=== PATIENT | female | born 1955 | race Caucasian/White ===

== ENCOUNTER 2021-04-24 13:52 | Inpatient (IN) | payer OTHER ==
[~2021-04-24] VITALS: Ht 162.6 cm; Wt 63.5 kg
[2021-04-24 14:36] LABS: BASOPHILS ABSOLUTE AUTO 0.04 K/mm3 (0.00-0.23); BASOPHILS PERCENT AUTO 1 % (0-2); EOSINOPHILS ABSOLUTE AUTO 0.01 K/mm3 (0.00-0.68); EOSINOPHILS PERCENT AUTO 0 % (0-6); Hematocrit 40.2 % (33.0-51.0); Hemoglobin 13.6 g/dL (11.5-16.0); IMMATURE GRAN ABSOLUTE AUTO 0.02 K/mm3 (0.00-0.10); IMMATURE GRAN PERCENT AUTO 0 % (0-1); LYMPHOCYTES ABSOLUTE AUTO 0.97 K/mm3 (0.84-5.20); LYMPHOCYTES PERCENT AUTO 11 % (21-46); MONOCYTES ABSOLUTE AUTO 0.76 K/mm3 (0.16-1.47); MONOCYTES PERCENT AUTO 9 % (4-13); Mean Corpuscular HGB 30.3 pg (26.0-34.0); Mean Corpuscular HGB Conc 33.8 g/dL (31.5-36.5); Mean Corpuscular Volume 90 fL (80-100); Mean Platelet Volume 9.4 fL (9.1-12.4); NEUTROPHILS ABSOLUTE AUTO 6.85 K/mm3 (1.96-9.15); NEUTROPHILS PERCENT AUTO 79 % (41-73); Platelet Count 268 K/mm3 (150-400); RDW Coefficient Variation 13.2 % (11.7-14.2); RDW Standard Deviation 43.9 fL (35.1-46.3); Red Blood Cell Count 4.49 M/mm3 (3.80-5.20); White Blood Cell Count 8.65 K/mm3 (4.00-11.30)
[2021-04-24 14:50] LABS: Alanine Aminotransfer (ALT/SGP 54 U/L (12-78); Albumin, Blood 4.2 g/dL (3.4-5.0); Albumin/Globulin Ratio 1.3 (0.8-1.8); Alk Phos 99 U/L (50-136); Anion Gap 9 mmol/L (6-16); Aspartate Aminotrans (AST/SGOT 38 U/L (12-37); Bilirubin, Total 0.5 mg/dL (0.1-1.0); Blood Urea Nitrogen 13 mg/dL (8-24); CO2, Blood 24 mmol/L (21-32); Calcium, Blood 8.8 mg/dL (8.5-10.1); Chloride, Blood 105 mmol/L (98-108); Creatinine, Blood 0.72 mg/dL (0.40-1.00); Globulin, Blood 3.3 g/dL (2.2-4.0); Glomerular Filtration Rate >60 (60-); Glucose, Blood 114 mg/dL (70-99); Sodium, Blood 138 mmol/L (136-145); Total Protein, Blood 7.5 g/dL (6.4-8.2); Troponin I <0.015 ng/mL (0.000-0.040)
[2021-04-24] MEDS ORDERED: ONDA8 PO (17:48)
[2021-04-24] MEDS ORDERED: OMEP20ER PO (17:48)
[2021-04-24] MEDS ORDERED: VENL75ER PO (17:49)
[2021-04-24] MEDS ORDERED: LORA10ER PO (18:06)
[2021-04-24 18:41] LABS: Source, Urine Clean Catch
[2021-04-24 19:00] LABS: Appearance, Urine Clear (Clear); Bilirubin, Urine Neg (Neg); Blood, Urine 3+ (Neg); Color, Urine Amber (P-Yellow); Glucose Qualitative, Urine Neg (Neg); Ketones, Urine 1+ (Neg); Leukocyte Esterase, Urine 1+ (Neg); Nitrite, Urine Neg (Neg); Protein, Urine 3+ (Neg); Specific Gravity, Urine 1.025 (1.003-1.022); Urobilinogen, Urine NORM (Normal)
[2021-04-24 19:54] LABS: Bacteria Mod /hpf; Squamous Epithelial Cells Few /hpf (Few)
[2021-04-25 05:01] LABS: BASOPHILS ABSOLUTE AUTO 0.06 K/mm3 (0.00-0.23); BASOPHILS PERCENT AUTO 1 % (0-2); EOSINOPHILS ABSOLUTE AUTO 0.11 K/mm3 (0.00-0.68); EOSINOPHILS PERCENT AUTO 2 % (0-6); Hematocrit 36.7 % (33.0-51.0); Hemoglobin 12.2 g/dL (11.5-16.0); IMMATURE GRAN ABSOLUTE AUTO 0.02 K/mm3 (0.00-0.10); IMMATURE GRAN PERCENT AUTO 0 % (0-1); LYMPHOCYTES ABSOLUTE AUTO 1.55 K/mm3 (0.84-5.20); LYMPHOCYTES PERCENT AUTO 21 % (21-46); MONOCYTES ABSOLUTE AUTO 0.83 K/mm3 (0.16-1.47); MONOCYTES PERCENT AUTO 11 % (4-13); Mean Corpuscular HGB 30.3 pg (26.0-34.0); Mean Corpuscular HGB Conc 33.2 g/dL (31.5-36.5); Mean Corpuscular Volume 91 fL (80-100); Mean Platelet Volume 9.4 fL (9.1-12.4); NEUTROPHILS ABSOLUTE AUTO 4.97 K/mm3 (1.96-9.15); NEUTROPHILS PERCENT AUTO 66 % (41-73); Platelet Count 215 K/mm3 (150-400); RDW Coefficient Variation 13.5 % (11.7-14.2); RDW Standard Deviation 45.4 fL (35.1-46.3); Red Blood Cell Count 4.03 M/mm3 (3.80-5.20); White Blood Cell Count 7.54 K/mm3 (4.00-11.30)
[2021-04-25 05:28] LABS: Anion Gap 6 mmol/L (6-16); Blood Urea Nitrogen 13 mg/dL (8-24); Bun/Creatinine Ratio 17.4 (12.0-20.0); CO2, Blood 26 mmol/L (21-32); Calcium, Blood 8.4 mg/dL (8.5-10.1); Chloride, Blood 107 mmol/L (98-108); Creatinine, Blood 0.75 mg/dL (0.40-1.00); Glomerular Filtration Rate >60 (60-); Glucose, Blood 119 mg/dL (70-99); Potassium, Blood 3.6 mmol/L (3.5-5.5); Sodium, Blood 139 mmol/L (136-145)
--- NOTE | 2021-04-25 07:50 | NUR ---
SHIFT SUMMARY: PT HAS BEEN STABLE SINCE ADMIT. DENIES CP, HOWEVER REPORTS A FLUTTERING SENSATON IN CHEST. TELE IN PLACE. PT A/FIB IN 80'S. CONTINUES TO REPORT DIZZINESS WITH ACTIVITY. DENIES AT REST. DENIES N/V. PLAN FOR ECHO TODAY.
--- NOTE | 2021-04-25 17:07 | NUR ---
SHIFT SUMMARY PT A&OX4, TELE @90-100, IV METOPROLOL GIVEN X1, PT REP DIZZY AND LIGHTHEADED WHEN UP TO BRP/SIDE OF BEAD, PT REP "FLUTTER" FEELING IN CHEST, DENIES CP/PRESSURE. DINO PO. VOIDING WELL. AMB SBA FOR SAFETY. WILL REPORT TO ONCOMING NOC NATE.
[2021-04-26 04:50] LABS: Hematocrit 38.1 % (33.0-51.0); Hemoglobin 12.9 g/dL (11.5-16.0); Mean Corpuscular HGB 30.6 pg (26.0-34.0); Mean Corpuscular HGB Conc 33.9 g/dL (31.5-36.5); Mean Corpuscular Volume 90 fL (80-100); Mean Platelet Volume 9.4 fL (9.1-12.4); Platelet Count 204 K/mm3 (150-400); RDW Coefficient Variation 13.3 % (11.7-14.2); RDW Standard Deviation 44.6 fL (35.1-46.3); Red Blood Cell Count 4.22 M/mm3 (3.80-5.20); White Blood Cell Count 6.13 K/mm3 (4.00-11.30)
[2021-04-26 05:13] LABS: Alanine Aminotransfer (ALT/SGP 34 U/L (12-78); Albumin, Blood 3.2 g/dL (3.4-5.0); Alk Phos 80 U/L (50-136); Anion Gap 5 mmol/L (6-16); Aspartate Aminotrans (AST/SGOT 23 U/L (12-37); Bilirubin, Total 0.5 mg/dL (0.1-1.0); Blood Urea Nitrogen 13 mg/dL (8-24); Bun/Creatinine Ratio 16.9 (12.0-20.0); CHOL/HDL RATIO 3.6; CO2, Blood 30 mmol/L (21-32); Calcium, Blood 8.5 mg/dL (8.5-10.1); Chloride, Blood 106 mmol/L (98-108); Cholesterol 284 mg/dL (50-200); Creatinine, Blood 0.77 mg/dL (0.40-1.00); Globulin, Blood 3.2 g/dL (2.2-4.0); Glomerular Filtration Rate >60 (60-); Glucose, Blood 103 mg/dL (70-99); HDL Cholesterol 80 mg/dL (>39); LDL/HDL RATIO 2.3; Low Density Lipoprotein Chol 183 mg/dL (0-110); Potassium, Blood 3.7 mmol/L (3.5-5.5); Sodium, Blood 141 mmol/L (136-145); Total Protein, Blood 6.4 g/dL (6.4-8.2); Triglycerides 107 mg/dL (30-160); Very Low Density Lipoprot Chol 21 mg/dL (6-32)
--- NOTE | 2021-04-26 06:35 | NUR ---
AAOX4. PATIENT HR AFIB CONTROLLED 90'S GOES UP TO 140'S UPON AMBULATING TO THE BATH ROOM. SLEPT WELL. NO ACUTE DISTRESS NOTED AT THIS TIME.
--- NOTE | 2021-04-26 18:24 | NUR ---
SHIFT SUMMARY PT A/O X4 AND SBA IN ROOM. C/O DIZZINESS AND TREATED PER EMR FOR VERTIGO. NO C/O CP BUT EXPERIENCING MINOR PALPITATIONS. TREATED PER EMR X1 FOR TACHYCARDIA. PT REMAINS IN AFIB. VS CURRENTLY STABLE. WILL REPORT TO JAIMIE SULLIVAN.
[2021-04-27 04:24] LABS: Hematocrit 41.5 % (33.0-51.0); Hemoglobin 13.9 g/dL (11.5-16.0); Mean Corpuscular HGB 30.2 pg (26.0-34.0); Mean Corpuscular HGB Conc 33.5 g/dL (31.5-36.5); Mean Corpuscular Volume 90 fL (80-100); Mean Platelet Volume 9.4 fL (9.1-12.4); Platelet Count 225 K/mm3 (150-400); RDW Coefficient Variation 13.2 % (11.7-14.2); RDW Standard Deviation 43.2 fL (35.1-46.3); Red Blood Cell Count 4.61 M/mm3 (3.80-5.20); White Blood Cell Count 7.31 K/mm3 (4.00-11.30)
[2021-04-27 06:21] LABS: Alanine Aminotransfer (ALT/SGP 30 U/L (12-78); Albumin, Blood 3.4 g/dL (3.4-5.0); Albumin/Globulin Ratio 1.2 (0.8-1.8); Alk Phos 89 U/L (50-136); Anion Gap 8 mmol/L (6-16); Aspartate Aminotrans (AST/SGOT 17 U/L (12-37); Bilirubin, Total 0.5 mg/dL (0.1-1.0); Blood Urea Nitrogen 16 mg/dL (8-24); Bun/Creatinine Ratio 21.7 (12.0-20.0); CO2, Blood 28 mmol/L (21-32); Calcium, Blood 8.8 mg/dL (8.5-10.1); Chloride, Blood 105 mmol/L (98-108); Creatinine, Blood 0.74 mg/dL (0.40-1.00); Globulin, Blood 2.9 g/dL (2.2-4.0); Glomerular Filtration Rate >60 (60-); Glucose, Blood 104 mg/dL (70-99); Potassium, Blood 3.9 mmol/L (3.5-5.5); Sodium, Blood 141 mmol/L (136-145); Total Protein, Blood 6.3 g/dL (6.4-8.2)
--- NOTE | 2021-04-27 07:22 | NUR ---
AAOX4. AROUND 1999 PATIENT HAD HR CONVERTED FROM A-FIB TO A-FLUTTER. WAS NOTIFIED AND ORDERED XARELTO AT 2100. LAST HR CHECKED AND WAS AFIB 109 AT 0725 IN AM. NO ACUTE DISTRESS NOTED AT THIS TIME. PATIENT IS SLEEPING.
--- NOTE | 2021-04-27 17:42 | NUR ---
SHIFT SUMMARY PT HAS REPORTED IMPROVEMENT THIS SHIFT. SHE STILL IS EXPERIENCING PALPITATIONS AND IS IN AFIB/AFLUTTER BUT HER VERTIGO IS IMPROVING. ONE INSTANCE OF NAUSEA THIS SHIFT BUT IT HAS RESPONDED WELL WITH MEDICATION. CAPRICE. WILL REPORT TO JAIMIE SULLIVAN.
--- NOTE | 2021-04-27 21:36 | NUR ---
AT 2120 PAT HAD A RUN OF V-TACH 18 BEAT/MIN. PATIENT IS DOING FINE AT THIS TIME. MD WAS CALLED AND STILL WAITING FOR CALL BACK
--- NOTE | 2021-04-27 22:04 | NUR ---
MD CALLED BACK IN REGARD TO V-TACH PT SARAH PIERSON, WILL KEEP MONITOR THE PATIENT AND THE MORNING LABS MG AND K
[2021-04-28 04:04] LABS: Hematocrit 43.3 % (33.0-51.0); Hemoglobin 14.6 g/dL (11.5-16.0); Mean Corpuscular HGB 30.2 pg (26.0-34.0); Mean Corpuscular HGB Conc 33.7 g/dL (31.5-36.5); Mean Corpuscular Volume 90 fL (80-100); Mean Platelet Volume 9.4 fL (9.1-12.4); Platelet Count 226 K/mm3 (150-400); RDW Coefficient Variation 12.8 % (11.7-14.2); RDW Standard Deviation 42.2 fL (35.1-46.3); Red Blood Cell Count 4.83 M/mm3 (3.80-5.20); White Blood Cell Count 6.97 K/mm3 (4.00-11.30)
[2021-04-28 04:34] LABS: Anion Gap 6 mmol/L (6-16); Blood Urea Nitrogen 15 mg/dL (8-24); Bun/Creatinine Ratio 20.6 (12.0-20.0); CO2, Blood 27 mmol/L (21-32); Calcium, Blood 8.7 mg/dL (8.5-10.1); Chloride, Blood 106 mmol/L (98-108); Creatinine, Blood 0.73 mg/dL (0.40-1.00); Glomerular Filtration Rate >60 (60-); Glucose, Blood 104 mg/dL (70-99); Sodium, Blood 139 mmol/L (136-145)
[2021-04-28 14:01] LABS: SARS-Cov-2 (COVID-19) PCR, MMC NEGATIVE (NEGATIVE)
--- NOTE | 2021-04-28 15:01 | NUR ---
PT TO ICU ROOM 7 VIA WHEELCHAIR WITH DASH MOFFETT AT THIS TIME FOR ALTON PROCEDURE
--- NOTE | 2021-04-28 15:58 | NUR ---
ECHOCARDIOGRAM COMPLETE
--- NOTE | 2021-04-28 16:10 | NUR ---
TIME OUT PERFORMED BY NATE DOZIER CHARGE. ETCO2 WAS ON DURING PROCEDURE. MD STARTED WITH ALTON, NO CLOTS FOUND. PROCEDED TO CARDIOVERSION ONCE PATIENT WAS LAYED FLAT ON BACK FROM BEING ON LEFT SIDE. AT 1544 200 JOULES BIPHASIC SHOCK GIVEN. PATIENT WENT BACK IN TO NORMAL SINUS RYTHM. SEE ANESTHESIA NOTES FOR MEDICATIONS GIVEN AND DOSES. BY 1600 PATIENT WAS AWAKE, ALERT AND ORIENTED. VSS. 12 LEAD EKG DONE AT BEDSIDE POST CARDIOVERSION. LAST SET OF VSS. 97% ON RA, HR 69, BP 135/81 MAP 98. REPORT GIVEN TO NATE PAUL.
--- NOTE | 2021-04-28 16:44 | NUR ---
REPORT RECEIVED FROM PHAN DIGITAL COMPUTER OPERATOR, PT BACK TO UNIT AT ABOUT 1640. PT IS A/O, DENIES CP. [employer] [place] [facility]ALIA REPORTS NSR AT 69. WILL CTM
--- NOTE | 2021-04-28 18:29 | NUR ---
SUMMARY: NO ACUTE CHANGE SINCE CARDIOVERSION. PT A/O, VSS, DENIES CP, TELE CONTINUES NSR. PT HAS NEW POWERGLIDE TO L UPPER ARM. PT IS AMBULATORY WITH SBA, TOLERATED DINNER TONIGHT. PLAN IS FOR STRESS TEST TOMORROW, WILL MAKE NOC RN AWARE. PT USING CALL LIGHT, NO SAFETY CONCERNS.
[2021-04-29 07:40] LABS: BASOPHILS ABSOLUTE AUTO 0.05 K/mm3 (0.00-0.23); BASOPHILS PERCENT AUTO 1 % (0-2); EOSINOPHILS ABSOLUTE AUTO 0.23 K/mm3 (0.00-0.68); EOSINOPHILS PERCENT AUTO 4 % (0-6); Hematocrit 38.7 % (33.0-51.0); Hemoglobin 13.3 g/dL (11.5-16.0); IMMATURE GRAN ABSOLUTE AUTO 0.01 K/mm3 (0.00-0.10); IMMATURE GRAN PERCENT AUTO 0 % (0-1); LYMPHOCYTES ABSOLUTE AUTO 1.21 K/mm3 (0.84-5.20); LYMPHOCYTES PERCENT AUTO 20 % (21-46); MONOCYTES ABSOLUTE AUTO 0.69 K/mm3 (0.16-1.47); MONOCYTES PERCENT AUTO 11 % (4-13); Mean Corpuscular HGB 31.3 pg (26.0-34.0); Mean Corpuscular HGB Conc 34.4 g/dL (31.5-36.5); Mean Corpuscular Volume 91 fL (80-100); Mean Platelet Volume 9.6 fL (9.1-12.4); NEUTROPHILS PERCENT AUTO 65 % (41-73); Platelet Count 237 K/mm3 (150-400); RDW Coefficient Variation 12.9 % (11.7-14.2); RDW Standard Deviation 42.6 fL (35.1-46.3); Red Blood Cell Count 4.25 M/mm3 (3.80-5.20); White Blood Cell Count 6.19 K/mm3 (4.00-11.30)
[2021-04-29 07:57] LABS: Anion Gap 4 mmol/L (6-16); Blood Urea Nitrogen 12 mg/dL (8-24); Bun/Creatinine Ratio 17.5 (12.0-20.0); CO2, Blood 30 mmol/L (21-32); Calcium, Blood 8.5 mg/dL (8.5-10.1); Chloride, Blood 108 mmol/L (98-108); Creatinine, Blood 0.68 mg/dL (0.40-1.00); Glomerular Filtration Rate >60 (60-); Glucose, Blood 100 mg/dL (70-99); Sodium, Blood 142 mmol/L (136-145)
[2021-04-29] MEDS ORDERED: ATOR20 PO (18:05)
[2021-04-29] MEDS ORDERED: METO50ER PO (18:05)
[2021-04-29] MEDS ORDERED: XARELTO20 MG PO (18:06)
--- NOTE | 2021-04-29 18:12 | NUR ---
SHIFT SUMMARY PT HAD STRESS TEST COMPLETE. BUT IS UNABLE TO ARRANGE A RIDE DUE TO WEATHER/DARK SO DC WAS POST PONED UNTIL TOMORROW; MD AWARE. PT HAS NO COMPLAINTS T/O DAY. MOVING AROUND WELL w/ SBA. DIZZINESS IMPROVED w/ EXERCISES BY THERAPY. ECXITED FOR DC TOMORROW.
--- NOTE | 2021-04-30 04:32 | NUR ---
SHIFT SUMMARY PT A&O X4 & IN PLEASENT MOOD T/O SHIFT. TOLERATING PO INTAKE WELL. PT DENIES SOB, CHEST PAIN, OR N/V @ THIS TIME. VSS. CALL LIGHT IS W/IN REACH. PT RESTED IN BED COMFORTABLY FOR MOST OF SHIFT. PT STEADY GAIT W/ AMBULATION, DENIES DIZZINESS.
[2021-04-30] MEDS ORDERED: LISI5 PO (09:21)
--- NOTE | 2021-04-30 10:25 | NUR ---
DISCHARGE PT DOING GREAT. NSR SINCE CARDIOVERSION. DR WOOD & DR MEZA IN TO SEE PT THIS AM. MED[facility] CALLED TO [facility]. ESCORTED OUT VIA W/C.
== END 2021-04-30 10:22 | disposition home or self-care (01) | DRG 308 ==
LOC: ER 13:52 → SURS 13:53 → ER 13:53 → ERHOLD 13:53 → SURS 13:53 → ER 21:14 → SURS 04-25 01:52 → ICUE 04-28 15:02 → SURS 04-28 16:37
PROVIDERS: Anesthesiology; Internal Medicine; Internal Medicine Cardiovascular Disease; Physician Assistant; ADMIT Internal Medicine
PROC: 5A2204Z Restoration of Cardiac Rhythm, Single (ICD-10-PCS; principal; 2021-04-28)
DX: I48.91 Unspecified atrial fibrillation (principal); I50.21 Acute systolic (congestive) heart failure; I50.32 Chronic diastolic (congestive) heart failure; F32.A Depression, unspecified; E87.6 Hypokalemia; Z20.822 Contact with and (suspected) exposure to COVID-19; E78.5 Hyperlipidemia, unspecified; I11.0 Hypertensive heart disease with heart failure; K21.9 Gastro-esophageal reflux disease without esophagitis; C76.0 Malignant neoplasm of head, face and neck; I70.0 Atherosclerosis of aorta; H81.10 Benign paroxysmal vertigo, unspecified ear; I25.10 Atherosclerotic heart disease of native coronary artery without angina pectoris; F10.10 Alcohol abuse, uncomplicated; I48.92 Unspecified atrial flutter; I47.2 Ventricular tachycardia; Z87.891 Personal history of nicotine dependence; Z88.1 Allergy status to other antibiotic agents; Z79.899 Other long term (current) drug therapy; Z88.6 Allergy status to analgesic agent; Z92.21 Personal history of antineoplastic chemotherapy; Z90.710 Acquired absence of both cervix and uterus; Z98.890 Other specified postprocedural states; Z28.89 Immunization not carried out for other reason
CPT/HCPCS: 36415; 71045; 71260; 78452; 80048; 80053; 80061; 81001; 83735; 83880; 84443; 84484; 85025; 85027; 87086; 92960; 93005; 93010; 93017; 93306; 93312; 93325; 94760; 96361; 96374; 96375; 96376; 97112; 97116; 97162; 99285-25; A9270; A9500; C1751; G0378; J0280; J2250; J2370; J2405; J2704; J2785; J3010; J7030; Q9967; U0004

== ENCOUNTER 2021-06-26 10:32 | Day surgery (SDC) | payer OTHER ==
[~2021-06-26] VITALS: Ht 162.6 cm; Wt 60.0 kg
[~2021-06-26 10:32] MED LIST: AMIODARONE HCL400 M2 PO; ATOR20 PO; LISI5 PO; LORA10ER PO; LOSA25 PO; METO50ER PO; OMEP20ER PO; ONDA8 PO; VENL75ER PO; XARELTO20 MG PO
[2021-06-26] MEDS ORDERED: ALPR.5 PO ×2 (11:09→11:10)
[2021-06-26] MEDS ORDERED: BANOPHEN25 MG PO (11:17)
[2021-06-26] MEDS ORDERED: MELATONIN5 M1 PO (11:18)
[2021-06-26] MEDS ORDERED: ACET500 PO (11:18)
[2021-06-26] MEDS ORDERED: KEYTRUDA100 MG/41 IV (11:20)
--- NOTE | 2021-06-26 12:35 | NUR ---
PT AWAKE POST PROCEDURE, CONVERSING APPROPRIATELY; DENIES CHEST PAIN. PT IN SR 60'S, OTHER VSS; POST PROCEDURE EKG PERFORMED.
[2021-06-26] MEDS ORDERED: Amiodarone HCl200 MG PO (12:39)
--- NOTE | 2021-06-26 12:55 | NUR ---
PT DRESSED SELF WITHOUT ISSUE, IV REMOVED-CANNULA INTACT.
--- NOTE | 2021-06-26 13:00 | NUR ---
PT AND SO RECEIVED DISCHARGE INSTRUCTIONS, MED LIST AND AFTER CARE INSTRUCTIONS; VERBALIZED GOOD UNDERSTANDING. PT LEF FACILITY VIA W/C, CONDITION STABLE.
== END 2021-06-26 22:37 | disposition home or self-care (01) ==
LOC: MHTC 10:32
DX: I48.91 Unspecified atrial fibrillation (principal); Z79.01 Long term (current) use of anticoagulants
CPT/HCPCS: 92960; 93005; 93010; J2704; J7030

== ENCOUNTER 2021-07-10 09:33 | Day surgery (SDC) | payer OTHER ==
[~2021-07-10] VITALS: Ht 162.6 cm; Wt 62.0 kg
[~2021-07-10 09:33] MED LIST changes: +ACET500 PO; +ALPR.5 PO; +Amiodarone HCl200 MG PO; +BANOPHEN25 MG PO; +KEYTRUDA100 MG/41 IV; +MELATONIN5 M1 PO
--- NOTE | 2021-07-10 10:56 | NUR ---
0940 PATIENT WAS BROUGHT BACK TOT PROCEDURE ROOM ADN PREPARED FOR A DCCV. DR. DAVISON CAME TOT ROOMA DN SPOKE WITH THE PATIENT AT LENGTH REGARDING THE PROCEDURE. PATIENT PLACED ON THE MONITOR. PIV OBTAINED. CONSENT, NURSING HISTORY. MEDICATION RECONCILIATION, AND ANESTHESIA INTERVIEW ALL PERFORMED AT THE BEDSIDE.
--- NOTE | 2021-07-10 10:59 | NUR ---
1036 PROCRDURE BEGUN, TIME OUT PREFORMED AND ONE [address] BY [address]. DAVISON. PATIENT RECOVERED BY RN AT THE BEDSIDE. REMAINS IN SINUS RHYTHM.
== END 2021-07-10 23:06 | disposition home or self-care (01) ==
LOC: MHTC 09:33
DX: I48.0 Paroxysmal atrial fibrillation (principal); I11.0 Hypertensive heart disease with heart failure; I50.22 Chronic systolic (congestive) heart failure; E78.5 Hyperlipidemia, unspecified; K21.9 Gastro-esophageal reflux disease without esophagitis
CPT/HCPCS: 92960; 93005; 93010; J2704; J7030

== ENCOUNTER → 2021-07-17 | Outpatient (CLI) | payer OTHER | END | disposition home or self-care (01) | LOC: LAB SHORT 14:51 | DX: L30.9 Dermatitis, unspecified (principal) | CPT/HCPCS: 88305; 88313 ==

== ENCOUNTER → 2021-07-31 | Outpatient (CLI) | payer OTHER | END | disposition home or self-care (01) | LOC: LAB SHORT 11:00 → LAB 11:00 | DX: L08.0 Pyoderma (principal) | CPT/HCPCS: 87070; 87077; 87186 ==

== ENCOUNTER 2024-08-17 00:43 | Day surgery (SDC) | payer OTHER ==
[2024-08-17] MEDS ORDERED: NS 250 ML IV SCH (06:50)
[2024-08-17 14:18] VITALS: BP 149/63
[2024-08-17 14:42] VITALS: BP 140/57
[2024-08-17 15:45] VITALS: BP 166/68
[2024-08-17] MEDS ORDERED: Acetaminophen 325 MG TABLET PO PRN (15:45)
[2024-08-17 16:07] VITALS: BP 154/70
[2024-08-17 17:32] VITALS: BP 131/53
[2024-08-17 17:55] VITALS: BP 122/56
== END 2024-08-17 18:07 | disposition home or self-care (01) ==
LOC: ATC 00:43
DX: C50.919 Malignant neoplasm of unspecified site of unspecified female breast (principal); Z17.1 Estrogen receptor negative status [ER-]; I48.91 Unspecified atrial fibrillation; Z87.891 Personal history of nicotine dependence; Z88.8 Allergy status to other drugs, medicaments and biological substances; Z79.899 Other long term (current) drug therapy
CPT/HCPCS: 36415; 36430; 86850; 86900; 86901; 86920; A9270; J7050; P9016

== ENCOUNTER → 2024-10-06 | Outpatient (CLI) | payer OTHER ==
[2024-10-06 14:05] LABS: Stool Occult Bld Immuno 1 Positive (NEGATIVE); Stool Occult Bld Immuno 2 Positive (NEGATIVE)
== END ==
LOC: LAB 11:19 → LAB SHORT 11:19
PROVIDERS: Nurse Practitioner
DX: C50.919 Malignant neoplasm of unspecified site of unspecified female breast (principal); D64.9 Anemia, unspecified
CPT/HCPCS: 82274

== ENCOUNTER 2024-10-20 01:08 | Day surgery (SDC) | payer MEDICARE ==
[2024-10-20] MEDS ORDERED: NS 250 ML IV SCH (06:55)
[2024-10-20 07:46] VITALS: BP 140/58
[2024-10-20 08:17] VITALS: BP 98/55
[2024-10-20 09:22] VITALS: BP 106/54
[2024-10-20] MEDS ORDERED: Acetaminophen 500 MG Tab PO SCH (09:45)
--- NOTE | 2024-10-20 09:50 | NUR ---
PT C/O HEADACHE 08/22, REQUESTED TYLELNOL. CALLED DR DEWITT'S OFFICE AND REC'D A NEW ORDER FOR TYLENOL.
[2024-10-20 09:53] VITALS: BP 123/59
[2024-10-20 10:58] VITALS: BP 110/57
[2024-10-20 11:14] VITALS: BP 110/57
== END 2024-10-20 11:14 | disposition home or self-care (01) ==
LOC: ATC 01:08
DX: C50.919 Malignant neoplasm of unspecified site of unspecified female breast (principal); D64.81 Anemia due to antineoplastic chemotherapy; T45.1X5A Adverse effect of antineoplastic and immunosuppressive drugs, initial encounter; Z79.899 Other long term (current) drug therapy; Z79.01 Long term (current) use of anticoagulants; Z88.8 Allergy status to other drugs, medicaments and biological substances
CPT/HCPCS: 36430; 86850; 86900; 86901; 86923; A9270; J7050; P9016

== ENCOUNTER 2025-04-16 13:51 | Emergency (ER) | payer MEDICARE, OTHER ==
[~2025-04-16] VITALS: Ht 162.6 cm; Wt 61.2 kg
[2025-04-16 14:54] LABS: BASOPHILS ABSOLUTE AUTO 0.08 K/mm3 (0.00-0.23); BASOPHILS PERCENT AUTO 1 % (0-2); EOSINOPHILS ABSOLUTE AUTO 0.19 K/mm3 (0.00-0.68); EOSINOPHILS PERCENT AUTO 3 % (0-6); Hematocrit 36.9 % (33.0-51.0); Hemoglobin 12.4 g/dL (11.5-16.0); Mean Corpuscular HGB Conc 33.6 g/dL (31.5-36.5); Mean Corpuscular Volume 81 fL (80-100); NRBC ABSOLUTE 0.03 K/mm3 (0.00-0.02); NRBC Auto 0.5 /100 WBC (0.0-0.2); RDW Coefficient Variation 22.2 % (11.7-14.2); RDW Standard Deviation 65.1 fL (35.1-46.3)
[2025-04-16 14:56] LABS: IMMATURE GRAN ABSOLUTE AUTO 0.06 K/mm3 (0.00-0.10); IMMATURE GRAN PERCENT AUTO 1 % (0-1); LYMPHOCYTES ABSOLUTE AUTO 1.36 K/mm3 (0.84-5.20); LYMPHOCYTES PERCENT AUTO 22 % (21-46); MONOCYTES ABSOLUTE AUTO 0.73 K/mm3 (0.16-1.47); MONOCYTES PERCENT AUTO 12 % (4-13); NEUTROPHILS ABSOLUTE AUTO 3.91 K/mm3 (1.96-9.15); NEUTROPHILS PERCENT AUTO 62 % (41-73)
[2025-04-16 15:02] LABS: Alanine Aminotransfer (ALT/SGP 48.0 U/L (12-78); Albumin, Blood 2.4 g/dL (3.4-5.0); Albumin/Globulin Ratio 0.5 (0.8-1.8); Anion Gap 9.0 mmol/L (3-11); Aspartate Aminotrans (AST/SGOT 153.0 U/L (12-37); Bilirubin, Total 2.1 mg/dL (0.1-1.0); Blood Urea Nitrogen 24.0 mg/dL (8-24); CO2, Blood 27.0 mmol/L (21-32); Calcium, Blood 8.5 mg/dL (8.5-10.1); Chloride, Blood 98.0 mmol/L (98-108); Creatinine, Blood 0.45 mg/dL (0.40-1.00); Globulin, Blood 5.1 g/dL (2.2-4.0); Glucose, Blood 102.0 mg/dL (70-99); Potassium, Blood 4.9 mmol/L (3.5-5.5); Sodium, Blood 129.0 mmol/L (136-145); Total Protein, Blood 7.5 g/dL (6.4-8.2)
[2025-04-16 15:22] LABS: pH Blood Venous 7.41 (7.34-7.37)
[2025-04-16 15:38] LABS: Prothrombin Time Results 12.4 Sec (9.7-11.5)
[2025-04-16 16:56] LABS: Source, Urine Clean Catch
[2025-04-16 16:58] LABS: Color, Urine Amber (P-Yellow); Glucose Qualitative, Urine 2+ (Neg); Ketones, Urine 1+ (Neg); Leukocyte Esterase, Urine 1+ (Neg); Protein, Urine 2+ (Neg); Specific Gravity, Urine 1.020 (1.003-1.022); Urobilinogen, Urine 2+ (Normal)
[2025-04-16 17:37] LABS: Bilirubin, Urine 1+ (Neg)
[2025-04-16] MEDS ORDERED: ELIQUIS5 M2 PO (17:51)
[2025-04-16] MEDS ORDERED: CEFP200 PO (17:51)
[2025-04-16] MEDS ORDERED: FURO20 PO (17:51)
[2025-04-16 18:15] VITALS: BP 150/96
== END 2025-04-16 18:21 | disposition home or self-care (01) ==
LOC: ER 13:51
PROVIDERS: Emergency Medicine; Physician Assistant
DX: N39.0 Urinary tract infection, site not specified (principal); E87.1 Hypo-osmolality and hyponatremia; R74.01 Elevation of levels of liver transaminase levels; E80.6 Other disorders of bilirubin metabolism; R74.8 Abnormal levels of other serum enzymes; R18.8 Other ascites; R14.0 Abdominal distension (gaseous); T45.516A Underdosing of anticoagulants, initial encounter; T50.1X6A Underdosing of loop [high-ceiling] diuretics, initial encounter; I48.91 Unspecified atrial fibrillation; I11.0 Hypertensive heart disease with heart failure; I50.20 Unspecified systolic (congestive) heart failure; Z91.141 Patient's other noncompliance with medication regimen due to financial hardship; Z88.1 Allergy status to other antibiotic agents; Z88.6 Allergy status to analgesic agent; Z79.01 Long term (current) use of anticoagulants; Z79.899 Other long term (current) drug therapy
CPT/HCPCS: 80053; 80320; 81001; 82140; 82803; 83605; 83690; 83880; 85025; 85610; 87086; 99284; A9270